=== PATIENT | female | born 1950 | race Caucasian/White ===

== ENCOUNTER → 2017-11-01 15:28 | Outpatient (CLI) | payer MEDICARE, SELFPAY ==
--- NOTE | 2017-11-01 15:41 | EKG12_ITS ---
Test Reason : PRE-OP Blood Pressure : / mmHG Vent. Rate : 061 BPM Atrial Rate : 061 BPM P-R Int : 142 ms QRS Dur : 088 ms QT Int : 420 ms P-R-T Axes : -08 031 043 degrees QTc Int : 422 ms Normal sinus rhythm Normal ECG Confirmed by JESSICA WHITMORE, CHRISTOPHER ([id number]), editor & co founder BELL COX ([id number]) on 11/03/2017 12:51:58 PM Referred By: Ronda Wilson Confirmed By:CHRISTOPHER LOPEZ MD
[2017-11-01 16:50] LABS: Hematocrit 37.6 % (37-47); Hemoglobin 11.8 g/dl (12.0-15.0); Mean Corp Hgb Conc 31.4 g/gl (32-36); Mean Corpuscular Hgb 31.6 pg (27.0-32.0); Mean Corpuscular Volume 100.5 fL (81-99); Mean Platelet Vol. 10.3 fl (6.2-12.0); Platelet Count 209 K/mm3 (150-450); RBC Distribution Width CV 12.4 % (11.6-14.6); RBC Distribution Width SD 44.5 fl (35.1-43.9); Red Blood Count 3.74 M/mm3 (4.2-5.4)
[2017-11-01 16:58] LABS: Scan Indicated on CBC? Y/N NO
[2017-11-01 17:03] LABS: Anion Gap 4 (5-15); BUN 12 mg/dL (7-18); BUN/Creat Ratio 14.9 RATIO (10-20); Calcium,Total 8.4 mg/dL (8.5-10.1); Chloride 103 mmol/L (98-107); Creatinine, Serum 0.81 mg/dL (0.55-1.02); EST Glomerular Filtration Rate 75 mL/min (>60); Est Glom Filt Rate - Afr Amer 91 mL/min (>60); Glucose 75 mg/dL (74-106); Potassium 3.7 mmol/L (3.5-5.1); Sodium Level 139 mmol/L (136-145)
== END ==
PROVIDERS: Family Provider Internal Medicine Infectious Disease; PCP Internal Medicine Infectious Disease; Visit Provider Physician Assistant
DX: Z01.818 Encounter for other preprocedural examination (principal); I10 Essential (primary) hypertension
CPT/HCPCS: 36415; 80048; 85027; 93005

== ENCOUNTER 2018-01-24 11:00 | Outpatient (RCR) | payer MEDICARE, SELFPAY ==
--- NOTE | 2017-12-11 18:00 | HP.OTEVAL_ITS ---
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 Date of Evaluation: 12/11/17 Occupational Therapist: Shonna Feldman, JAYSON/Willy, CHT - Subjective Subjective: This pt was seen for intial OT eval following a Right primary osteoarthritis of first carppmetacapal joint. PT states she struggled with right thumb pain for years. She underwent a number of conservative treatments but was unable to resolve her pain. She had sx on November 17. pt states she is feeling well and is hopeful to return to performing all her home mtg tasks soon. - Pain right hand 4 Pain Intensity Range: 0, 6 - ROM Wrist: right 40/35 left 70/50 MP: Right 15 left 50 IP: right 30 left 75 - Edema Wrist: right 17cm left 15.5cm Other: right MCP 19cm left MCP 19cm - In-Hand Manipulation Finger to Palm Translation: Unable - Right, Normal - Left Palm to Finger Translation: Unable - Right, Normal - Left - DASH-Disabilities of Arm, Shoulder& Hand DASH Sum: 70 - Goals Goal:: following 12 weeks pt will demo a right attending pathologist strenght of 35# or greater to increase her ind. with functional ADLs by d/c Goal:: pt will demo a increase in right wrist ROM by 30 degress to increase pts ind. with BADLS by D/C. pt will demo a increase in right digit flex equal to left to increase pts ind. with BADLs and IADLs by D/C Goal:: pt will report pain no greater than 1/10 with use of right UE with pts BADLS and IADLS by D/C Goal:: pt will demo the ability to manipulate 10 coins to increase pts ind. with in hand coin manipulation by d/c Goal:: pt will demo a reduction in edema by .5 cm or greater to facilitate functional movment by d/c Goal:: pt will demo understanding of scar mtg by end of 2nd session. - Rehabilitation General Assessment: S/P right CMC arthroplatsty- pt demo with edema in right hand/wrist- pt demo with ulnar drift of right wrist- and limited right wrist and digit ROM. Strength will be tested at later date. Pt is currently limited with functional use of bilateral hands for BADLs and IADLs. Pt demo a need for skilled OT services to assist pt in return to her PLOF. Rehabilitation Potential: Excellent - Anticipated Interventions Anticipated Interventions: A/AAROM/PROM, Edema Control, Scar Care, Triggerpoint Release, Desensitization, Modalities, Orthoses, Joint Protection/Energy Conservation - Visit Plan Frequency: 2-3x /Week Duration: 6 Weeks TEXT: Thank you for the opportunity to evaluate your patient. For Medicare and Medicare HMO plans, please review the plan of care and approve it. It will need to be FAXED BACK to us at [phone] for Medicare purposes. Please let me know if there are questions or concerns regarding this plan of care. Physician Signature: Date:
--- NOTE | 2018-01-10 14:02 | HP.OTREVAL ---
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 Please see the progress note below for an update on the occupational therapy plan of care! Subjective: pt continues to have pain fluctuare bewteen 3-03/09 has gone without brace at night and most of the time during the day- pt is 8 weeks s/p pt states she is doing nmore with BADLS and IADLs - Objective/Function: Due to electronic downtime procedure,the information from january 01, 2018 throught january 07, 2018 was electronically scanned into the medical records. right mcp flex 40 right IP flex 60 - pt demo ability to oppose to LF tip- pt demo functional ROM. Plan Frequency: 1x/Week Duration: 2 Weeks Plan: cont with cmc protocol Goals - Goals Goal:: following 12 weeks pt will demo a right saddle and side wire stitcher strenght of 35# or greater to increase her ind. with functional ADLs by d/c Goal:: pt will demo a increase in right wrist ROM by 30 degress to increase pts ind. with BADLS by D/C. pt will demo a increase in right digit flex equal to left to increase pts ind. with BADLs and IADLs by D/C Goal:: pt will report pain no greater than 1/10 with use of right UE with pts BADLS and IADLS by D/C Goal:: pt will demo the ability to manipulate 10 coins to increase pts ind. with in hand coin manipulation by d/c Goal:: pt will demo a reduction in edema by .5 cm or greater to facilitate functional movment by d/c Goal:: pt will demo understanding of scar mtg by end of 2nd session. Anticipated Interventions Anticipated Interventions: A/AAROM/PROM, Edema Control, Scar Care, Triggerpoint Release, Desensitization, Modalities, Orthoses, Joint Protection/Energy Conservation Please do not hesitate to contact me at [phone] by phone or if you have questions or concerns regarding this new plan of care! Sincerely, Shonna Feldman, OTR/L, CHT
--- NOTE | 2018-01-10 14:12 | OTREVAL_ITS ---
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 Please see the progress note below for an update on the occupational therapy plan of care! Subjective: pt continues to have pain fluctuare bewteen 3-03/09 has gone without brace at night and most of the time during the day- pt is 8 weeks s/p pt states she is doing nmore with BADLS and IADLs - Objective/Function: Due to electronic downtime procedure,the information from january 01, 2018 throught january 07, 2018 was electronically scanned into the medical records. right mcp flex 40 right IP flex 60 - pt demo ability to oppose to LF tip- pt demo functional ROM. Plan Frequency: 1x/Week Duration: 2 Weeks Plan: cont with cmc protocol Goals - Goals Goal:: following 12 weeks pt will demo a right wood carving machine operator strenght of 35# or greater to increase her ind. with functional ADLs by d/c Goal:: pt will demo a increase in right wrist ROM by 30 degress to increase pts ind. with BADLS by D/C. pt will demo a increase in right digit flex equal to left to increase pts ind. with BADLs and IADLs by D/C Goal:: pt will report pain no greater than 1/10 with use of right UE with pts BADLS and IADLS by D/C Goal:: pt will demo the ability to manipulate 10 coins to increase pts ind. with in hand coin manipulation by d/c Goal:: pt will demo a reduction in edema by .5 cm or greater to facilitate functional movment by d/c Goal:: pt will demo understanding of scar mtg by end of 2nd session. Anticipated Interventions Anticipated Interventions: A/AAROM/PROM, Edema Control, Scar Care, Triggerpoint Release, Desensitization, Modalities, Orthoses, Joint Protection/Energy Conservation Please do not hesitate to contact me at [phone] by phone or Fax: if you have questions or concerns regarding this new plan of care! Sincerely, Shonna Feldman, OTR/L, CHT
--- NOTE | 2018-01-24 11:27 | HP.OTDCSUM ---
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 Please see the following information for a summary of their discharge status. - Objective Objective/Function: pt demo a right software quality engineer of 45# left software quality engineer 55#. right lateral pinch- 4#. right tripod 4#-. right MCP 45 right IP 45. right CMC 25. pt reports IND. with all BADLS and IADLS. pt states she has no concerns or questions- agrees to cont with HEP. - Goals Patient Goals: Regain Mobility, Regain Strength, Decrease Swelling/Stiffness, Improve Fine Motor Skills, Use Hand/Wrist/Arm Normally Again, Be More Independent in ADLS Goal:: following 12 weeks pt will demo a right software quality engineer strenght of 35# or greater to increase her ind. with functional ADLs by d/c Goal:: pt will demo a increase in right wrist ROM by 30 degress to increase pts ind. with BADLS by D/C. pt will demo a increase in right digit flex equal to left to increase pts ind. with BADLs and IADLs by D/C Goal:: pt will report pain no greater than 1/10 with use of right UE with pts BADLS and IADLS by D/C Goal:: pt will demo the ability to manipulate 10 coins to increase pts ind. with in hand coin manipulation by d/c Goal:: pt will demo a reduction in edema by .5 cm or greater to facilitate functional movment by d/c Goal:: pt will demo understanding of scar mtg by end of 2nd session. - Plan Plan: D/C - D/C Information Discharge Comments: Pt has been seen for 6 OT therapy sessions following a right CMC arthroplasty. pt has returned to PLOF and has met all goals in OT and is D/C from OT at this time. pt demo understanding of joint protection and ad. eq use as needed. pt to return to dr. if any difficulities arise. PT agrees with POC. If there are questions or concerns regarding this patient's occupational therapy, please fell free to call me at [phone]. Thank you for the referral of this patient. Sincerely, Shonna Feldman, OTR/Willy, CHT
== END 2018-01-24 18:25 | disposition home or self-care (01) ==
LOC: OT 11:00
PROVIDERS: Family Provider Internal Medicine Infectious Disease; PCP Internal Medicine Infectious Disease; Visit Provider Specialist
DX: M18.11 Unilateral primary osteoarthritis of first carpometacarpal joint, right hand (principal)
CPT/HCPCS: 97110; 97140; 97166; 97168; 97760; 97763

== ENCOUNTER 2018-02-23 13:28 | Emergency (ER) | payer MEDICARE, SELFPAY ==
[2018-02-23 13:29] VITALS: BP 124/80; PULSE 64; RESP 18; TEMP 36.1; O2SAT 97; BMI 25.7
[2018-02-23] MEDS: HYDROcodone Bitartrate/Apap 5/325 Tablet PO (14:28)
[2018-02-23 14:40] LABS: Mucous, Urine 0 SEEN /hpf (<or=2+)
[2018-02-23 14:45] LABS: Glucose, Dipstick Normal (Normal); Ketone-Dipstick Negative (Negative); Leukocyte Esterase-Dipstick 25 /ul (Negative); Nitrite-Dipstick Negative (Negative); Occult Blood-Urine 10 /ul (Negative); Protein-Dipstick 15 mg/dl (Negative); Urine Bilirubin Dipstick Negative (Negative); Urine Urobilinogen Normal (Normal)
[2018-02-23 14:52] LABS: Color, Urine Yellow (Yellow); Urine Clarity Clear (Clear)
[2018-02-23 14:54] LABS: Red Blood Cells-Urine 0-5 SEEN /hpf (0-5); Squamous Epithelial Cells - UA 0-5 SEEN /hpf (5-10); White Blood Cells 0-5 SEEN /hpf (0-5)
[2018-02-23 14:55] LABS: Bacteria RARE /hpf (None Seen)
--- NOTE | 2018-02-23 15:42 | ED.VISSUMM ---
- ER Visit Summary Date of Service: 02/23/18 Chief Complaint: Back pain History of Present Illness: The patient is a 68 F with fall 2 weeks ago, she also has some urinary symptoms. Her main complaint is right -sided back pain that she developed a contusion over the flank region. This has mostly improved but her pain got worse after a long drive today. No fever or chills no abdominal pain. She has frequency but no urgency. Physical Examination: Not appear in acute distress. Moist mucous membranes, no obvious facial deformity No C-spine tenderness supple neck. Regular rate and rhythm without any obvious murmurs Clear lungs bilaterally speaking in full sentences without any obvious respiratory distress Abdomen soft and nontender no guarding or rebound Moves all extremities without any difficulty or pain. She does have a small contusion/ ecchymosis over the right side of her back and flank. No midline tenderness. Skin does not show any obvious rashes or lesions, no trauma. Alert oriented ?3 with no gross focal deficit Emergency Department Course and Treatment: [Her back pain is musculoskeletal she has no red flags and has a full normal exam. Because of the urinary frequency I did a urinalysis that shows trace leuks, I will treat her for urinary tract infection.] She will be discharged in stable condition. Impression: Back pain Urinary tract infection This note was generated with [employer] dictation software. It may contain incorrect words, spelling, and punctuation that were not noted in review of the chart prior to signing ED Disposition - Plan for ED Patient: Disposition: Home or Assisted Living Chief Complaint: Back Instructions: ED Contusion Back, ED UTI Cystitis Female Prescriptions: Hydrocodone Bitart/Apap 5-325 [[place] 5/325] 1 - 2 tab PO Q4H PRN PRN 4 Days #20 tab PRN Reason: Pain Smz/Tmp Ds [Bactrim Ds] 1 tab PO BID #14 tab Cyclobenzaprine [Flexeril] 10 mg PO TID PRN #20 tab PRN Reason: Muscle Spasm Referrals: Angelina Gray [Primary Care Provider] -
--- NOTE | 2018-02-23 15:48 | ED.DCSUM_ITS ---
- ER Visit Summary Date of Service: 02/23/18 Chief Complaint: Back pain History of Present Illness: The patient is a 68 F with fall 2 weeks ago, she also has some urinary symptoms. Her main complaint is right -sided back pain that she developed a contusion over the flank region. This has mostly improved but her pain got worse after a long drive today. No fever or chills no abdominal pain. She has frequency but no urgency. Physical Examination: Not appear in acute distress. Moist mucous membranes, no obvious facial deformity No C-spine tenderness supple neck. Regular rate and rhythm without any obvious murmurs Clear lungs bilaterally speaking in full sentences without any obvious respiratory distress Abdomen soft and nontender no guarding or rebound Moves all extremities without any difficulty or pain. She does have a small contusion/ ecchymosis over the right side of her back and flank. No midline tenderness. Skin does not show any obvious rashes or lesions, no trauma. Alert oriented ?3 with no gross focal deficit Emergency Department Course and Treatment: [Her back pain is musculoskeletal she has no red flags and has a full normal exam. Because of the urinary frequency I did a urinalysis that shows trace leuks, I will treat her for urinary tract infection.] She will be discharged in stable condition. Impression: Back pain Urinary tract infection This note was generated with [employer] dictation software. It may contain incorrect words, spelling, and punctuation that were not noted in review of the chart prior to signing ED Disposition - Plan for ED Patient: Disposition: Home or Assisted Living Chief Complaint: Back Instructions: ED Contusion Back, ED UTI Cystitis Female Prescriptions: Hydrocodone Bitart/Apap 5-325 [[place] 5/325] 1 - 2 tab PO Q4H PRN PRN 4 Days #20 tab PRN Reason: Pain Smz/Tmp Ds [Bactrim Ds] 1 tab PO BID #14 tab Cyclobenzaprine [Flexeril] 10 mg PO TID PRN #20 tab PRN Reason: Muscle Spasm Referrals: Angelina Gray [Primary Care Provider] -
[2018-02-23] MEDS: Smz/Tmp Ds Tablet 1 TABLET PO (15:51)
== END 2018-02-23 15:55 | disposition home or self-care (01) ==
PROVIDERS: Emergency Provider Emergency Medicine; Family Provider Internal Medicine Infectious Disease; PCP Internal Medicine Infectious Disease
DX: N39.0 Urinary tract infection, site not specified (principal); M54.9 Dorsalgia, unspecified; I10 Essential (primary) hypertension; F32.9 Major depressive disorder, single episode, unspecified; Z79.82 Long term (current) use of aspirin; Z79.899 Other long term (current) drug therapy
CPT/HCPCS: 81001; 99283

== ENCOUNTER 2021-02-10 14:00 | Outpatient (RCR) | payer MEDICARE, SELFPAY ==
--- NOTE | 2021-01-12 15:38 | HP.OTEVAL_ITS ---
Patient's Visit Information CLIFTON TAN is a 70 year old F, referred to Occupational Therapy by Giuliano Oneal PA-C, with a diagnosis of left unilateral primary osteoarthritis of 1st carpometacarpal joint. Date of Evaluation: 01/12/21 Occupational Therapist: Shonna Feldman, JAYSON/Willy, CHT - Subjective This 70 year old female was seen for OT eval with left CMC 1st carpometacarpal joint osteoarthritis. Pt had cmc arthroplasty on December 01, 2020 and arrives today for custom orthosis to provide support and protection for next few weeks. pt is currently 4 weeks and 4 days s/p and reports she is left handed and limited with all ADls and IADLs, reports pain at times 5/10. pt is hopeful to return to PLOF. - ADLs Dressing: Button shirt, Pants, Socks Eating: Use silverware, Cut food, Drink from glass Bathing: Handle washcloth & soap - Pain left hand 4 Pain Intensity Range: 3 - ROM Wrist: right 65/60 left 30/15 CMC: right 15 left 10 MP: right 30 left 20 IP: right 50 left 30 - Strength Senior Informatica Etl Developer: right 35# left Not tested Lateral Pinch: right 4# left not tested Tripod Pinch: right 4# left not tested - Sensation Sensation Comments: denies - Quick DASH-Disab of Arm,Shoulder& Hand Quick DASH Score: 75.0000 - Goals Goal:100% adherence to protocol: Yes Comment: cmc arthroplasty Goal:Daily scar massage when approriate: Yes Goal:ROM equal to unaffected hand: Yes Goal:Senior Informatica Etl Developer/Pinch strength at least 75% of unaffected hand: Yes Goal:No pain with affected hand use: Yes Goal:Full use of affected hand in daily activities including: Yes Goal:Decrease scar hypersensitivity: Yes - Rehabilitation General Assessment: pt arrives 4 weeks s/p from left CMC arthroplasty. pt demo with limited left wrist, thumb ROM and in need of protective orthosis to allow for healing and protection. pt is in need of increase support and assist with ADLs and IADLs at this time. Pt would benefit from skilled OT services 1-2x week for 4-6 weeks to assist pt in return to PLOF. Today therapist fabricated pt a custom orthosis soto based thumb spica- ed. pt on use and skin care precautions. pt demo understanding. therapist ed. pt on wrist ROM and supported cmc with IP and MP motion to pts comfort level at this time. Therapist ed. pt on scar mtg and edema control. pt demo understanding and agree to POC. Rehabilitation Potential: Good - Anticipated Interventions A/AAROM/PROM, Strengthening, Edema Control, Scar Care, Triggerpoint Release, Modalities, Orthoses, Joint Protection/Energy Conservation, Fine Motor Coord/Shan, Education re Diagnosis, Home Program - Visit Plan Frequency: 1-2x /Week Duration: 4-6 Weeks TEXT: Thank you for the opportunity to evaluate your patient. For Medicare and Medicare HMO plans, please review the plan of care and approve it. It will need to be FAXED BACK to us at [phone] for Medicare purposes. Please let me know if there are questions or concerns regarding this plan of care. Physician Signature: Date:
--- NOTE | 2021-03-09 10:08 | HP.OT.NRP ---
CLIFTON TAN was seen in my office for initial evaluation on 01/12/21. The following Plan of Care was established for this patient: Initial Frequency: 1-2x /Week Initial Duration: 4-6 Weeks Plan: Continue flex/ext with 1# weight as clark. Anticipated Interventions: A/AAROM/PROM, Strengthening, Edema Control, Scar Care, Triggerpoint Release, Modalities, Orthoses, Joint Protection/Energy Conservation, Fine Motor Coord/Shan, Education re Diagnosis, Home Program This patient was last seen in our office 02/10/21. Pertinent comments regarding their Occupational therapy will appear below: pt was seen for 7 OT visits following CMC arthroplasty- pt was making good gain with ROM and returning to her PLOF with ADls. pt however was unable to attend therapy session due personal reasons of caring for her parents estate. pt d/c per her request as she was unable to attend the therapy sessions. At this point I will be discontinuing this patient from occupational therapy. I would be happy to see this patient again in the future if found appropriate by the physician. Thank you! Shonna Feldman, OTR/L, CHT
== END 2021-02-10 19:00 | disposition home or self-care (01) ==
LOC: OT 14:00
PROVIDERS: Referring Provider Physician Assistant Surgical; Visit Provider Physician Assistant Surgical
DX: M18.12 Unilateral primary osteoarthritis of first carpometacarpal joint, left hand (principal)
CPT/HCPCS: 97035; 97110; 97140; 97166; 97760